=== PATIENT | female | born 1950 | race Caucasian/White ===

== ENCOUNTER 2024-11-27 13:11 | Emergency (ER) | payer MEDICARE, OTHER ==
[~2024-11-27] VITALS: Ht 170.2 cm; Wt 55.9 kg
--- NOTE | 2024-11-27 13:32 | ELECTROCARDIOGRAPH REPORT ---
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
[2024-11-27 13:47] LABS: MEAN PLATELET VOLUME 8.4 FL (7.4-10.4); RED CELL DISTRIBUTION WIDTH 13.7 % (11.5-14.5)
--- NOTE | 2024-11-27 13:57 | RADIOLOGY REPORT ---
CHEST RADIOGRAPH Indication: CP Technique: Single frontal view of the chest was obtained COMPARISON: None FINDINGS: Lines and Tubes: None Lungs: Clear Pleura: No effusion. No pneumothorax. Cardiomediastinal contours: Unremarkable Bones: Unremarkable IMPRESSION: No acute disease.
[2024-11-27 14:08] LABS: CREATININE 0.67 MG/DL (0.40-0.90); PRO BRAIN NATRIURETIC PEPTIDE 173 PG/ML (0-450); TOTAL CARBON DIOXIDE 26.5 MMOL/L (24-32); eCRCL 64 ML/MIN; eGFR 86 ML/MIN
[2024-11-27] MEDS ORDERED: hydrALAZINE 20mg/ml inj. IV ONE (16:15)
--- NOTE | 2024-11-27 16:48 | RADIOLOGY REPORT ---
CT brain without contrast CLINICAL INDICATION: dizziness FINDINGS: The study was performed in a multidetector scanner. This study performed taking axial image s from the skull base up to the vertex. Both brain and bone windows are photographed. Dose lowering techniques have been used including automated exposure control and adjustment of mA and /or KV according to patient size. Normal and symmetrical shape and density of brain parenchyma above and below the tentorium is seen. T here is no mass, midline shift or hydrocephalus. No intra/extra-axial collections demonstrated. There is no intracranial hemorrhage. The calvarium is intact. IMPRESSION: 1. Normal brain and skull. Computed Tomographic Radiation Dosimetry Report: Total CTDI vol = 58 mGy Total DLP = 957 mGy-cm All C T scans at this medical facility are performed using dose modulation techniques as appropriate to a p erformed exam including the following: Automated exposure control was utilized; adjustment of the MA and/or KvP according to patient size; and use of iterative reconstruction technique.
[2024-11-27 18:10] VITALS: O2SAT 98
--- NOTE | 2024-11-27 18:20 | Physician Documentation ---
History of Present Illness ~ Chief Complaint: Dizziness Stated Complaint: CARDIAC SYMPTOMS Time Seen by MD: 17:59 Mode of Arrival: Ambulatory HPI Patient presents to the emergency room with concerns for a murmur, possible high blood pressure, possible aortic stenosis and seeking a cardiologic referral. She was seen by her primary care provider and told that she has a murmur and that she needs a cardiologic referral. She does not know where to go at this point therefore she came into the emergency room. She states she is feeling overwhelmed with all of the new diagnoses and she endorses anxiety related to this. She denies any chest pain. She has been having palpitations for years. She reports that she has taken her blood pressure at home that has 120 over 70 however she is concerned because in the emergency room it is elevated. Endorses family history of stroke and she has concern that she is at high risk for this. She also reports episodes of disequilibrium prompted when she stands. She denies actual syncope and denies any current vertigo symptoms although she states she has distant history of vertigo. She denies one-sided symptoms. Medication Reconciliation Allergies: Coded Allergies: Sulfa (Sulfonamide Antibiotics) (Verified Allergy, Unknown, RASH, 11/27/24) lidocaine (Verified Allergy, Unknown, PASTED OUT, 11/27/24) Review of Systems ROS All review of systems negative except as per HPI Physical Exam Vital Signs: Temperature: 99.1, Source: Oral, Heart Rate: 77, Respiratory Rate: 14, BP: 157/99, Pulse Oximetry: 98, Weight: 55.910 Oxygen Flow Rate: 0 Physical Exam General: Patient is awake, alert, oriented x4 in no acute distress. Mildly anxious Head: Normocephalic and atraumatic. Eyes: Conjunctival normal. EOMI. PERRL. ENT: Mucous membranes moist. Neck: Supple, trachea is midline. Chest: Clear to auscultation bilaterally without rales, rhonchi, or wheezes. There is no accessory muscle use or retractions. Cardiac: RRR without murmurs, gallops, or rubs. Abd: Soft, nondistended, nontender, with normoactive bowel sounds. No guarding, rebound, or rigidity. Progress Results/Orders Results/Orders Medications Received in ER Medications (Trade) Dose Ordered Sig/Addie Route PRN Reason Start Time Stop Time Status Last Admin Dose Admin (Catapres tablet) 0.1 mg ONCE ONCE PO 11/27/24 15:30 11/27/24 15:31 DC 11/27/24 15:42 0.1 MG Vital Signs 11/27/24 11/27/24 11/27/24 11/27/24 13:22 13:37 14:01 14:32 Temp 99.1 Pulse 110 89 86 Resp 18 14 22 B/P (MAP) 200/122 212/112 (145) 192/116 (141) Pulse Ox 100 98 98 O2 Flow Rate 0 0 11/27/24 11/27/24 11/27/24 11/27/24 15:17 15:50 16:07 16:30 Pulse 88 88 89 88 90 97 Resp 11 15 16 B/P (MAP) 184/117 (139) 196/119 172/114 (133) 150/100 (117) 193/122 180/117 Pulse Ox 96 97 97 O2 Flow Rate 0 0 0 11/27/24 11/27/24 11/27/24 17:05 18:10 18:47 Temp 99.1 Pulse 77 84 Resp 16 14 16 B/P (MAP) 145/92 (109) 157/99 (118) 153/90 Pulse Ox 97 98 O2 Flow Rate 0 Laboratory Tests Test 11/27/24 13:40 11/27/24 15:16 11/27/24 16:41 White Blood Count 7.8 Red Blood Count 4.58 Hemoglobin 14.2 Hematocrit 42.0 Mean Corpuscular Volume 91.7 Mean Corpuscular Hemoglobin 31.0 Mean Corpuscular Hemoglobin Concent 33.8 Red Cell Distribution Width 13.7 Platelet Count 326 Mean Platelet Volume 8.4 Neutrophils (%) (Auto) 78.7 H Lymphocytes (%) (Auto) 14.9 L Monocytes (%) (Auto) 5.1 Eosinophils (%) (Auto) 0.7 Basophils (%) (Auto) 0.6 Neutrophils # (Auto) 6.1 Lymphocytes # (Auto) 1.2 Monocytes # (Auto) 0.4 Eosinophils # (Auto) 0.1 Basophils # (Auto) 0.0 CBC Comment Sodium Level 138 Potassium Level 3.9 Chloride Level 102 Carbon Dioxide Level 26.5 Anion Gap 10 Blood Urea Nitrogen 15 Creatinine 0.67 Estimated GFR/1.73 m2 86 BUN/Creatinine Ratio 22.4 H Glucose Level 116 H Calcium Level 9.6 Troponin I High Sensitivity 9 16 27 Pro-B-Type Natriuretic Peptide 173 Albumin 4.5 Chemistry Comments Troponin I High Sens Percent Delta 77 68 Troponin I Hi Sens Absolute Change 7 11 EKG/XRAY/CT/US/VASC/MRI EKG : Additional Comment EKG interpreted by myself shows time of 13 19, rate 89, sinus rhythm, normal axis, no ST changes Chest X-Ray : Additional Comments Exam: CHEST,SINGLE VIEW CHEST RADIOGRAPH Indication: CP Technique: Single frontal view of the chest was obtained COMPARISON: None FINDINGS: Lines and Tubes: None Lungs: Clear Pleura: No effusion. No pneumothorax. Cardiomediastinal contours: Unremarkable Bones: Unremarkable IMPRESSION: No acute disease. : Impression Exam: CT HEAD CT brain without contrast CLINICAL INDICATION: dizziness FINDINGS: The study was performed in a multidetector scanner. This study performed taking axial images from the skull base up to the vertex. Both brain and bone windows are photographed. Dose lowering techniques have been used including automated exposure control and adjustment of mA and/or KV according to patient size. Normal and symmetrical shape and density of brain parenchyma above and below the tentorium is seen. There is no mass, midline shift or hydrocephalus. No intra/extra-axial collections demonstrated. There is no intracranial hemorrhage. The calvarium is intact. IMPRESSION: 1. Normal brain and skull. Medical Decision Making Findings Patient presented to the emergency room with palpitations and disequilibrium that has for HPI. Differentials include but are not limited to ACS, stroke, anxiety, labyrinthitis therefore emergent labs and imaging indicated. CT reassuring no remote infarcts. That has not appear to be anything acute occurring regarding patient's symptoms and he had not feel she is suffering from stroke. Patient's blood pressure is very volatile and I have instructed her to begin blood pressure log at her house. No evidence of end-organ damage in she is not suffering from hypertensive emergency. Troponins negative. Palpitations are chronic in nature with no actual syncope. Ultimately reassuring physical exam vitals EKG and labs. She is not having any chest pain. I feel she is safe for discharge to follow up with her doctor for cardiologic referral. ER precautions discussed. Departure Disposition: HOME / SELF CARE / HOMELESS Impression: Primary Impression: Palpitations Condition: Stable Discharge Instructions: Palpitations Referrals: NO PRIMARY CARE PROVIDER (PCP) Signature Scribe Signature: no scribe Attestation: The note accurately reflects work and decisions made by me.Carter Ewing MD 11/27/24 18:21 CARTER EWING MD Nov 27, 2024 18:20
[2024-11-27 18:47] VITALS: BP 153/90; PULSE 84; RESP 16; TEMP 99.1
== END 2024-11-27 18:48 | disposition home or self-care (01) ==
LOC: ER 13:12
DX: R00.2 Palpitations (principal); R06.02 Shortness of breath; R51.9 Headache, unspecified
CPT/HCPCS: 36415; 70450; 71045; 80048; 83880; 84484; 85025; 93005; 99285

== ENCOUNTER 2025-02-09 10:15 | Day surgery (SDC) | payer MEDICARE, OTHER ==
[~2025-02-09] VITALS: Ht 170.2 cm; Wt 56.7 kg
[2025-02-09] VITALS (9 sets, daily range): BP systolic 125–171; BP diastolic 75–99; PULSE 79–99; RESP 13–16; O2SAT 96–100
[2025-02-09] MEDS ORDERED: ASPI-1265 PO (10:48)
[2025-02-09] MEDS ORDERED: IBUP-2417 PO (10:50)
[2025-02-09 11:18] LABS: MEAN PLATELET VOLUME 8.4 FL (7.4-10.4); RED CELL DISTRIBUTION WIDTH 13.1 % (11.5-14.5)
[2025-02-09 11:32] LABS: INR 1.1 INR
[2025-02-09 11:36] LABS: CREATININE 0.76 MG/DL (0.40-0.90); TOTAL CARBON DIOXIDE 27.4 MMOL/L (24-32); eCRCL 57 ML/MIN; eGFR 74 ML/MIN
--- NOTE | 2025-02-09 11:42 | ELECTROCARDIOGRAPH REPORT ---
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 SHAILA Perez Measurements Intervals [place] Rate: 93 P: 58 IN: 189 QRS: 53 QRSD: 89 T: 61 QT: 377 QTc: 469 Interpretive Statements Sinus rhythm Atrial premature complex Electronically Signed On 02-09-2025 16:53:[address] SHAILA Perez Please click the below link to view image of tracing.
[2025-02-09] MEDS ORDERED: verapamil 2.5 mg/ml inj IV ONE (13:19)
[2025-02-09] MEDS ORDERED: fentaNYL/PF 50MCG/1 ML 2ML syringe ONE (13:19)
[2025-02-09] MEDS ORDERED: iohexol 350 MG/ML 50ML vial IV ONE ×2 (13:19→14:32)
[2025-02-09] MEDS ORDERED: midazolam 1 mg/ML 2ml injection ONE (13:19)
[2025-02-09] MEDS ORDERED: nitroGLYCERIN 500mcg/5mL D5W 5 ML IV ONE (13:20)
[2025-02-09] MEDS ORDERED: heparin 1,000unit/ml 10ml vial 10 ML ONE (13:20)
[2025-02-09] MEDS ORDERED: tetracaine 1% (10mg/ml) pres. free inj. SQ ONE (13:30)
[2025-02-09 14:26] LABS: ISTAT HGB ART 12.9 g/dl (12.0-16.0); ISTAT Hct ART 38 %PCV (35-45); ISTAT O2 SATURATION ARTERIAL 95 % (95-98); ISTAT SOURCE ART
[2025-02-09 14:56] LABS: ISTAT HGB MIX 12.6 g/dl (12.0-16.0); ISTAT Hct MIX 37 %PCV (35-45); ISTAT O2 SATURATION MIX VENOUS 75 % (60-80); ISTAT SOURCE VEN
[2025-02-09] MEDS: metoprolol succinate 25mg (24-HOUR) SR. Tablet PO SCH (15:43)
--- NOTE | 2025-02-09 16:04 | CONSULTATION REPORT ---
History of Present Illness Providers to ascending aortic aneurysm History of Present Illness 74 yo female with h/o HTN presents with 6 month c/o dizziness and occasional palpitations. Patient referred to cardiology in the last 1-2 weeks and echocardiogram demonstrates a dilated ascending aorta at 5.7 - 6 cm with mild to moderate /AI. She has preserved LV function and no additional valvular abnormality. Cardiac catheterization shows normal coronaries.The patient denies chest or back pain and no family h/o aortopathy. I have been asked to see her regarding surgical correction. Allergies: Coded Allergies: Sulfa (Sulfonamide Antibiotics) (Verified Allergy, Unknown, RASH, 11/27/24) lidocaine (Verified Allergy, Unknown, PASTED OUT, 11/27/24) Home Medications Home Medications Active Reported Ibuprofen 200 Mg Capsule 1 Cap PO Q8H 10 Days Aspirin 81 Mg Tab.chew 1 Tab PO DAILY 30 Days Past Medical History Medical History Comment recently diagnosed hypertension Past Surgical History Surgical History Comment cataract surgery Past Family History Family History Comment non contributory Past Social History Social History Comment non smoker no h/o Etoh use Physical Exam Last Vital Signs Recorded: RN Vital Signs have been reviewed: Yes, Respiratory Rate: 15 General Appearance: alert, WD/WN, no apparent distress EENT: moist mucous membranes Neck: normal inspection, full range of motion, supple, non-tender Respiratory: lungs clear, normal breath sounds, no respiratory distress Chest: no accessory muscle use Cardiovascular: normal peripheral pulses, regular rate, rhythm, no edema, no JVD, systolic murmur (3/6 alex) Gastrointestinal: normal palpation, non-tender Extremities: normal range of motion, non-tender, no edema Neurologic: oriented x4 Psychiatric: normal mood/affect Skin: normal color, warm/dry Review of Systems ROS ROS Comments: unremarkable except for as mentioned per HPI Results Diagram Lab Result Diagram: 02/09/25 1105 02/09/25 1105 Assessment/Plan Additional Plan 74 yo female with h/o HTN presents with 6 month c/o dizziness and occasional palpitations. Patient referred to cardiology in the last 1-2 weeks and echocardiogram demonstrates a dilated ascending aorta at 5.7 - 6 cm with mild to moderate /AI. She has preserved LV function and no additional valvular abnormality. Cardiac catheterization shows normal coronaries.The patient denies chest or back pain and no family h/o aortopathy. I have been asked to see her regarding surgical correction. I have discussed the findings with the patient and her . I will obtain a CTA of the chest, abdomen, and pelvis for better anatomical delineation. I will discuss the findings with the patient and for now recommend replacement of the ascending aorta. There does not appear to be involvement of the aortic root. The CTA will provide more information. I have answered all o their questions and they will follow up on Wednesday for imaging study. palpitations and dizziness RAY DOBBINS MD Feb 09, 2025 16:03
--- NOTE | 2025-02-09 17:05 | VASCULAR REPORT ---
CLINICAL HISTORY: Hypertension TECHNIQUE: Pierce-scale, Color and Duplex Doppler imaging of the bilateral carotid systems was performed. COMPARISON: None Findings: Right Carotid system: There is mild intimal thickening present in the right carotid system. Left Carotid system: There is mild intimal thickening present in the left carotid system. The following flow velocities were obtained (cm/sec). Right Carotid System: ICA PSV: 49 cm/sec ICA PDV: 21 cm/sec ICA/CCA Ratio: 0.6 Left Carotid System: ICA PSV: 45 cm/sec ICA PDV: 17 cm/sec ICA/CCA Ratio: 1.0 The right and left common carotid and external carotid arteries are patent. There is antegrade flow in both vertebral arteries and external carotid arteries. IMPRESSION: No hemodynamically significant stenosis noted in the right carotid system. No hemodynamically significant stenosis noted in the left carotid system. Antegrade flow in the bilateral vertebral arteries.
--- NOTE | 2025-02-09 18:21 | CARDIOLOGY REPORT ---
DATE OF SERVICE: 02/09/2025 DICTATING PHYSICIAN: SHAILA Perez MD CARDIAC CATHETERIZATION DATE OF PROCEDURE: 02/09/2025 GENDER: Female. AGE: 74 years. HEIGHT: 170 cm. WEIGHT: 56.7 kg. BODY SURFACE AREA: 1.65 m2. INDICATION: The patient is a 74-year-old postmenopausal female with a history of hypertension and evaluation for palpitation and dizziness and shortness of breath. She had an echocardiogram which showed ejection fraction of 65% with severe ascending aortic aneurysm measuring 6 cm, mild and mild to moderate AR. PASP of 41 mmHg of her site of the aortic aneurysm. The patient was recommended coronary angiography in preparation for surgical evaluation. Risks and benefits of operative options were discussed. Informed consent was obtained. PROCEDURE TECHNIQUE: The patient underwent left left catheterization from right radial approach, 6-[place] right radial sheath, post procedure right radial access site, hemostasis secured with right radial band. The patient underwent right heart catheterization from right antecubital approach 6-[place] antecubital sheath. Post-procedure access site secured with manual compression. The patient tolerated the procedure well. COMPLICATIONS: None. PROCEDURES DONE: * Ultrasound-guided right radial artery visualization and access. * Right heart catheterization. * Left heart catheterization. * LVG. * Coronary cineangiography. * Ascending aortography. * Conscious sedation of 30 minutes. FINDINGS: HEMODYNAMICS: Aortic systolic 150, diastolic 85, mean 112 mmHg, LVEDP 11 mmHg with no significant gradient across the aortic valve. Right atrial mean 2 mmHg, RV systolic 22 mmHg, PA 20/18/10 mmHg, pulmonary capillary 5 mmHg, aortic oxygen saturation 95%. Aortic oxygen saturation is 75%. Cardiac output by thermodilution measure is 6.56 L per minute. Cardiac index of 3.9 L/min/m2. LEFT VENTRICULOGRAM: Overall left ventricular systolic function normal, LV ejection fraction of 65% to 70%. Ascending aortography with severe ascending aortic aneurysm measuring 6.1 cm. By echocardiogram it was 6 cm. CORONARY CINEANGIOGRAPHY: Left main coronary artery cannulated with JL5 catheter. Large caliber artery left aortic stenosis with mild luminal irregularity. Left anterior descending artery is a medium caliber vessel arising at the bifurcation of the left main coronary artery. It courses through anterior interventricular groove and ends up by wrapping around the apex. Mild luminal irregularities. Dilagonal 1: 2.5 mm caliber with mild luminal irregularities. Circumflex artery is a medium caliber and nondominant vessel arising at the left main coronary artery coursing through the left AV groove with mild luminal irregularities and circumflex artery is predominantly continues as obtuse marginal branch, showed 2.5 mm mild luminal irregularity. Right coronary artery: Large caliber vessel arising from right aortic sinus engaged with JL5 catheter and with mild luminal irregularities. IMPRESSION: A 74-year-old female with LV ejection fraction 65% to 70%. LVEDP of 11 mmHg with no gradient across the aortic valve. Large ascending aortic aneurysm measuring 6.1 cm. Left main normal. LAD, circumflex and right coronary artery with mild luminal irregularities. RECOMMENDATIONS: The patient's case and images were reviewed with Cardiothoracic surgeon Dr. Mendez. He came to labeler and evaluated the Angiogram and did consultation with patient and her subsequently. He has started the workup for Cardiothoracic surgery including carotid ultrasound and CT scan of the chest with contrast. Patient has been started on metoprolol succinate 25 mg p.o. q.day and losartan 25 mg p.o. q.day to keep her blood pressure under normal and decrease the aortic wall stress. Risks benefits alternative options were discussed in detail with patient and her . They understand the risks. Patient was recommended to avoid all strenuous activities until her aneurysm is repaired. SHAILA Perez MD TID: [id number] RECEIPT: [id number] VARUN/ELIE cc: Seamus BENITES
[2025-02-10] MEDS ORDERED: LORA-268 PO (21:16)
== END 2025-02-09 18:45 | disposition home or self-care (01) ==
LOC: SSTAY O 10:15
PROVIDERS: ATTEND Internal Medicine Cardiovascular Disease
DX: I71.21 Aneurysm of the ascending aorta, without rupture (principal); R53.83 Other fatigue; I10 Essential (primary) hypertension; I25.10 Atherosclerotic heart disease of native coronary artery without angina pectoris; I49.1 Atrial premature depolarization; Z78.0 Asymptomatic menopausal state; Z79.82 Long term (current) use of aspirin; Z88.2 Allergy status to sulfonamides; Z98.49 Cataract extraction status, unspecified eye; Z98.890 Other specified postprocedural states; Z98.42 Cataract extraction status, left eye; Z98.41 Cataract extraction status, right eye
CPT/HCPCS: 36415; 80048; 82803; 85014; 85025; 85610; 93005; 93460; 93567; 93880; A6258; C1725; C1751; C1894; J1644; J2250; J3010; J3490; J7030; Q0163; Q9967; Z7610; 76937; 99152; 99153

== ENCOUNTER 2025-02-10 16:21 | Emergency (ER) | payer MEDICARE, OTHER ==
[~2025-02-10] VITALS: Ht 170.2 cm; Wt 56.2 kg
[~2025-02-10 16:21] MED LIST: ASPI-1265 PO; IBUP-2417 PO
--- NOTE | 2025-02-10 16:54 | ELECTROCARDIOGRAPH REPORT ---
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 SHAILA Perez Measurements Intervals [place] Rate: 91 P: 74 MD: 152 QRS: 74 QRSD: 83 T: 72 QT: 339 QTc: 418 Interpretive Statements Sinus rhythm Atrial premature complexes Nonspecific T abnrm, anterolateral leads Electronically Signed On 02-11-2025 11:48:[address] SHAILA Perez Please click the below link to view image of tracing.
--- NOTE | 2025-02-10 17:07 | RADIOLOGY REPORT ---
EXAM: DI CHEST,SINGLE VIEW HISTORY: CP TECHNIQUE: 1 view of the chest COMPARISON: DI CHEST,SINGLE VIEW on DOS: 11/27/24 FINDINGS/IMPRESSION: LUNGS: No pleural effusion, consolidation, or pneumothorax. MEDIASTINUM: Normal cardiac size. Mild prominence of the aortic knob, which may be suggestive of hypertension. BONES: No acute osseous abnormality. OTHER: None.
[2025-02-10 17:23] LABS: MEAN PLATELET VOLUME 8.5 FL (7.4-10.4); RED CELL DISTRIBUTION WIDTH 13.4 % (11.5-14.5)
[2025-02-10 17:39] LABS: CREATININE 0.80 MG/DL (0.40-0.90); PRO BRAIN NATRIURETIC PEPTIDE 444 PG/ML (0-450); TOTAL CARBON DIOXIDE 29.0 MMOL/L (24-32); eCRCL 54 ML/MIN; eGFR 70 ML/MIN
--- NOTE | 2025-02-10 17:59 | Physician Documentation ---
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 The patient states she developed room spinning dizziness while standing that lasted several minutes. Patient states it felt like vertigo to her. She is concerned because he was recently diagnosed with a 6 cm aortic aneurysm and placed on blood pressure medications one day ago. The patient denies any chest pain. Patient states she has a cardiac catheterization yesterday which showed no problems. She denies any shortness of breath. The patient states her dizziness has improved her symptoms are moderate and persistent. Medication Reconciliation Allergies: Coded Allergies: Sulfa (Sulfonamide Antibiotics) (Verified Allergy, Unknown, RASH, 02/10/25) lidocaine (Verified Allergy, Unknown, PASTED OUT, 02/10/25) Scheduled Aspirin (Aspirin), 1 TAB PO DAILY, (Reported) Ibuprofen (Ibuprofen), 1 CAP PO Q8H, (Reported) Scheduled PRN Lorazepam (Ativan), 1 TAB PO Q12H PRN PRN for anxiety Past Medical History Other Past Surgical History: Aortic aneurysm Review of Systems All Other Systems at this time: Reviewed and Negative Physical Exam Physical Exam Vital Signs: Temperature: 98.6, Source: Temporal, Heart Rate: 93, Respiratory Rate: 19, BP: 156/93, Pulse Oximetry: 98, Weight: 56.200 Oxygen Flow Rate: 0 Physical Exam VITALS: Reviewed and as above. GENERAL: Alert, no apparent distress. HEENT: Normocephalic, atraumatic, PERRL, EOMI, dry mucosa, no erythema RESPIRATORY: Lungs clear, normal breath sounds, no respiratory distress. CHEST: No accessory muscle use, no retractions CV: Regular rate, rhythm, no edema, three of six systolic murmur heard at the right upper sternal border, No: JVD GI: Soft, non-tender, bowels sounds present, no rebound, guarding, or rigidity BACK: No CVA tenderness, or swelling MUSCULOSKELETAL: No deformities, no edema SKIN: Warm and dry, no rash NEURO: Oriented x4, No motor or sensory deficit PSYCH: Normal mood and affect, no agitation Progress Results/Orders Results/Orders Orders - OHLFS,DAVID Fink MD, Md To Page (02/10/25 ) Completed Orders - OHLFS,DAVID Fink MD Lorazepam Tablet (Ativan Tablet) (02/10/25 18:25) Metoprolol Tartrate Tablet (Lopressor Ta (02/10/25 19:45) Vital Signs 02/10/25 02/10/25 02/10/25 02/10/25 16:32 18:30 19:00 19:02 Temp 98.6 98.6 98.6 Pulse 93 88 86 Resp 19 13 17 14 B/P (MAP) 156/93 163/98 (119) 154/85 (108) Pulse Ox 98 96 95 O2 Flow Rate 0 0 0 02/10/25 02/10/25 02/10/25 02/10/25 19:15 20:12 20:17 21:00 Temp 98.6 98.6 Pulse 88 86 74 Resp 12 17 20 B/P (MAP) 161/89 (113) 151/94 (113) Pulse Ox 95 96 O2 Flow Rate 0 0 02/10/25 21:53 Temp 98.6 Pulse 73 Resp 14 B/P (MAP) 146/101 Pulse Ox 95 Laboratory Tests Test 02/10/25 17:05 02/10/25 19:03 02/10/25 20:11 White Blood Count 8.4 Red Blood Count 4.27 Hemoglobin 13.2 Hematocrit 39.1 Mean Corpuscular Volume 91.5 Mean Corpuscular Hemoglobin 30.8 Mean Corpuscular Hemoglobin Concent 33.7 Red Cell Distribution Width 13.4 Platelet Count 308 Mean Platelet Volume 8.5 Neutrophils (%) (Auto) 79.4 H Lymphocytes (%) (Auto) 10.9 L Monocytes (%) (Auto) 8.7 Eosinophils (%) (Auto) 0.5 Basophils (%) (Auto) 0.5 Neutrophils # (Auto) 6.7 Lymphocytes # (Auto) 0.9 L Monocytes # (Auto) 0.7 Eosinophils # (Auto) 0.0 Basophils # (Auto) 0.0 CBC Comment Sodium Level 135 Potassium Level 3.9 Chloride Level 102 Carbon Dioxide Level 29.0 Anion Gap 4 L Blood Urea Nitrogen 20 H Creatinine 0.80 Estimated GFR/1.73 m2 70 BUN/Creatinine Ratio 25.0 H Glucose Level 111 H Calcium Level 9.1 Troponin I High Sensitivity 387 *H 422 *H 427 *H Pro-B-Type Natriuretic Peptide 444 Albumin 4.2 Chemistry Comments Troponin I High Sens Percent Delta 9 1 Troponin I Hi Sens Absolute Change 35 5 Medical Decision Making Additional information obtaine: old records, family Findings The patient is a 74-year-old female with a history of recently diagnosed aortic aneurysm who had an episode of dizziness today. The patient had a cardiac catheterization yesterday for and evaluate uation for potential surgery for her aortic aneurysm she has no chest pain or worsening shortness of breath. The patient was discussed with the hit her visual c developer's , he advised that the patient could be admitted for blood pressure management and serial troponins and the patient was offered admission she desired to go home , the patient's troponins appear to be plateauing consistent with a recent cardiac catheterization there were no significant coronary artery occlusions identified on a recent catheterization. The patient has been advised to return if she develops any worsening symptoms. She will be told to increase her metoprolol dosing and she can take up to two additional metoprolol doses during the day for blood pressure was elevated. Prior hospitalizations has been reviewed the patient's pulse oximetry was interpreted as normal and adequate the patient will be discharged with instructions to follow up on Wednesday, the patient's EKG demonstrated a sinus rhythm with a normal axis and a rate of 91 there is an occasional PAC and nonspecific ST abnormality there was no ST-elevation or ST- depression. The EKG was interpreted as borderline. The time of interpretation was 1800 Differential Diagnosis Coronary artery disease dehydration, infectious processes Departure Time of Disposition: 21:20 Disposition: 01 HOME / SELF CARE / HOMELESS Impression: Primary Impression: Dizziness Discharge Instructions: Dizziness Additional Instructions: Take metoprolol twice a day now 25 mg in the morning and 25 mg in the evening if your blood pressure is noted to be elevated after taking your metoprolol least an hour later you could add another dose of the 25 mg of metoprolol. Follow up with your scheduled appointments on Wednesday. Return for worsening of your symptoms. Referrals: NO PRIMARY CARE PROVIDER (PCP) Prescriptions Lorazepam (Ativan) 0.5 Mg Tablet 1 TAB PO Q12H PRN PRN for anxiety, #10 TAB 0 Refills Prov: DAVID FRANCO MD 02/10/25 Signature Scribe Signature: No scribe Attestation: The note accurately reflects work and decisions made by me.David Franco MD 02/12/25 02:53 DAVID FRANCO MD Feb 10, 2025 17:59
[2025-02-10] MEDS ORDERED: LORA-268 PO (21:16)
[2025-02-10 21:53] VITALS: BP 146/101; PULSE 73; RESP 14; TEMP 98.6; O2SAT 95
== END 2025-02-10 21:58 | disposition home or self-care (01) ==
LOC: ER 16:21
DX: R42 Dizziness and giddiness (principal); Z86.79 Personal history of other diseases of the circulatory system; Z88.2 Allergy status to sulfonamides; Z88.8 Allergy status to other drugs, medicaments and biological substances; Z79.82 Long term (current) use of aspirin; Z79.899 Other long term (current) drug therapy
CPT/HCPCS: 36415; 71045; 80048; 83880; 84484; 85025; 93005; 99285

== ENCOUNTER 2025-02-12 07:52 | Outpatient (CLI) | payer MEDICARE, OTHER ==
[~2025-02-12 07:52] MED LIST changes: +LORA-268 PO
--- NOTE | 2025-02-12 14:48 | RADIOLOGY REPORT ---
Examination: CT CTA CHEST ABDOMEN PELVIS CLINICAL HISTORY: AORTIC ANEURYSM Comparison: None Technique: Using helical technique, CT data from the chest through the pelvis was obtained during rapid IV contrast infusion. The examination was timed to the arterial system to generate a CT angiographic study. 3D images were generated at an independent work station. Dose reduction techniques included automated exposure control. Radiation Dose Information: CT Dose: CTDI volume is 8.8 mGy. Dose-length product is 628 mGy*cm Findings: Vascular: Thoracic aorta: Normal caliber, patent Aortic arch: Normal caliber, patent Descending aorta: Normal caliber, patent Abdominal aorta: Normal caliber, patent Celiac artery: Patent SMA: Patent Renal arteries: Patent ANGIE: Patent Portal/mesenteric veins: normal Abdominal systemic veins: normal Chest: Lungs/Pleura: Mild biapical scarring. No focal parenchymal process. No suspicious pulmonary nodules. No pleural effusion or focal pleural lesion. Axilla/Soft Tissue: No supraclavicular or axillary adenopathy. Regional soft tissues are within normal limits. Mediastinum:Visualized thyroid is normal. No pathologic mediastinal or hilar adenopathy. Esophagus is normal. Trachea and proximal bronchi are normal. Heart: Cardiomegaly. Coronary artery calcifications. Vascular calcifications of the aorta. No pericardial effusion. Ectasia of the ascending thoracic aorta measuring 4.8 cm. Abdomen/Pelvis: Liver: The liver is normal in size and morphology,. No focal hepatic lesion. The portal veins are patent. Biliary System: Gallbladder: Normal Bile Ducts: No intrahepatic or extrahepatic biliary ductal dilation. Spleen: No splenomegaly or focal splenic lesion. Pancreas: No masses or ductal dilation. Adrenals: Normal. Urinary System: Kidneys and Ureters: Normal in size and location. No renal masses. No renal or ureteral calculi. No hydronephrosis or hydroureter. Bladder: Normal. GI System: Colonic diverticulosis. Lymph nodes: No lymphadenopathy. Peritoneal cavity and surface: No free fluid. No pneumoperitoneum. Soft Tissues: Normal. Reproductive Organs: Leiomyomatous uterus. Bones: No acute fracture or aggressive osseous lesion. Multilevel degenerative changes of the spine. Impression: Vascular: 1. Ectasia of the ascending thoracic aorta measuring 4.8 cm. Chest: 1. No acute intrathoracic process. Abdomen/Pelvis: 1. No acute abdominal pelvic process.
== END 2025-02-12 23:59 | disposition home or self-care (01) ==
LOC: RAD 07:52
PROVIDERS: ATTEND Thoracic Surgery (Cardiothoracic Vascular Surgery)
DX: D25.9 Leiomyoma of uterus, unspecified (principal); I77.819 Aortic ectasia, unspecified site; K57.30 Diverticulosis of large intestine without perforation or abscess without bleeding; M47.814 Spondylosis without myelopathy or radiculopathy, thoracic region
CPT/HCPCS: 71275; 74174; Q9967